=== PATIENT | female | born 1965 | race Caucasian/White ===

== ENCOUNTER → 2016-11-09 | Outpatient (CLI) | payer OTHER ==
[~2016-11-09] MED LIST: METFORMIN PO; PARLODEL2.5 MG PO; SYNTHROID PO; VICODIN PO; WALGREENS PHARMACY
--- NOTE | ~2016-11-09 | XA35 ---
[facility] A Service of [facility] RADIOLOGY TEXT RESULTS PATIENT: NOLA BRASHER LOCATION: [facility] : [birth year] UNIT #: [id number] AGE: [address]: Zachary Rodriguez MD SEX: F ORDER DR: [id number] [facility] [address] [place], [place] [address] [id number] O MR#: [id number] Acc #: [id number] NAME: NOLA BRASHER : 1965 SEX: F STUDY DATE/TIME: 11/09/2016 11:34 UNIT: [facility] ROOM: STUDY DESCRIPTION: XA Arthrogram Shoulder Rt Attending Physician: Zachary Rodriguez M.D. Referring Physician: Zachary Rodriguez M.D. Ordering Physician: Zachary Rodriguez M.D. Primary Care Physician: Shravan Suárez M.D. MEDICAL IMAGING REPORT This report is preliminary unless electronic signature is present EXAM Fluoroscopically-guided right shoulder arthrogram HISTORY 51-year-old lady who injured her right shoulder in July. She fell after tripping over her purse strap and braced herself again a wall with her right arm. PROCEDURE The risks, benefits, and alternatives to the procedure were explained to the patient and a signed, informed consent was obtained. She was prepped and draped in the usual sterile fashion and timeout was performed as per protocol. Skin and subcutaneous tissues were anesthetized with buffered lidocaine. A 22-gauge spinal needle was advanced into the joint space. Contrast was injected which confirmed location within the joint space. Multiple fluoroscopic imaging was obtained, needle was removed, and manual pressure was applied until hemostasis was obtained. Total fluoroscopy time was 0.9 minutes. Total of 4 fluoroscopic images were obtained. IMPRESSION Technically successful fluoroscopically-guided right shoulder arthrogram. Please see separately dictated report for a full description of findings within the right shoulder. Fluoroscopy was used during this procedure and permanent images were saved. Dictated by... Aimee Alan M.D. THIS IS AN ELECTRONICALLY VERIFIED REPORT Aimee Alan M.D. at 11/10/2016 10:03 AM AFF/aa [facility] A Service of [facility] RADIOLOGY TEXT RESULTS PATIENT: NOLA BRASHER LOCATION: [facility] #: [id number] : [birth year] UNIT #: [id number] AGE: [address]: Zachary Rodriguez MD SEX: F ORDER DR: TD: 11/10/2016 08:54 JOB #: [id number] MEDICAL IMAGING REPORT Page 1 of 1 COPY
--- NOTE | ~2016-11-09 | CT130 ---
[facility] A Service of [facility] RADIOLOGY TEXT RESULTS PATIENT: NOLA BRASHER LOCATION: [facility] : [birth year] UNIT #: [id number] AGE: [address]: Zachary Rodriguez MD SEX: F ORDER DR: [id number] [facility] [address] [place], [place] [address] [id number] O MR#: [id number] Acc #: [id number] NAME: NOLA BRAHSER. : 1965 SEX: F STUDY DATE/TIME: 11/09/2016 12:16 UNIT: [facility] ROOM: STUDY DESCRIPTION: CT Upper Ext Rt Wo Cont Attending Physician: Zachary Rodriguez M.D. Referring Physician: Zachary Rodriguez M.D. Ordering Physician: Zachary Rodriguez M.D. Primary Care Physician: Shravan Suárez M.D. MEDICAL IMAGING REPORT This report is preliminary unless electronic signature is present EXAM CT right shoulder. HISTORY 51-year-old female; right greater tuberosity fracture. Possible cuff avulsion. COMPARISON Conventional arthrogram 11/09/2016. Comparison also made to right shoulder films 08/07/2016. TECHNIQUE Thin section axial images were performed through the right shoulder with multiplanar reconstructed images reviewed at a workstation. Intraarticular contrast injected. FINDINGS Examination demonstrates deformity of the greater tuberosity consistent with a mildly impacted greater tuberosity fracture. There is estimated about 4 mm of impaction. No significant disruption of the humeral head articular surface is identified. No evidence of a fracture of the surgical neck of the humerus. AC joint unremarkable. Contrast distends the glenohumeral joint with abnormal communication to the subacromial-subdeltoid bursa through a full-thickness tear involving the anterior distal insertion of the supraspinatus tendon. This measures about 1.1 cm medial to lateral dimension by 1.5 cm AP dimension. There is a focus of calcification within the infraspinatus tendon near the myotendinous junction. This is compatible with calcific tendinitis. This was seen on the patient's study from 08/07/2016. The infraspinatus and teres minor tendons appear intact. The subscapularis tendon appears intact. The long tendon of the biceps and visualized labrum unremarkable. Extraarticular soft tissues unremarkable. [facility]. [facility] A Service of [facility] RADIOLOGY TEXT RESULTS PATIENT: NOLA BRASHER LOCATION: [facility] : 63 UNIT #: [id number] AGE: [address]: Zachary Rodriguez MD SEX: F ORDER DR: The impaction fracture measures approximately 2 cm in greatest AP dimension. IMPRESSION 1. 1.1 x 1.5 cm full-thickness tear involving the anterior distal insertion of the supraspinatus tendon. 2. Minimally impacted greater tuberosity fracture. There is no more than 4 mm impaction of the fracture, and the fracture appears relatively healed, but there is some residual deformity related to the impaction injury. Dictated by... Esther Herr M.D. THIS IS AN ELECTRONICALLY VERIFIED REPORT Esther Herr M.D. at 11/14/2016 6:05 AM John TD: 11/13/2016 12:12 JOB #: [id number] MEDICAL IMAGING REPORT Page 1 of 1 COPY
== END | disposition home or self-care (01) ==
LOC: CIVR 11:00
DX: S42.254A Nondisplaced fracture of greater tuberosity of right humerus, initial encounter for closed fracture (principal); S46.011A Strain of muscle(s) and tendon(s) of the rotator cuff of right shoulder, initial encounter
CPT/HCPCS: 73040; 73200; 77002; Q9967

== ENCOUNTER 2016-12-15 19:05 | Emergency (ER) | payer OTHER | END 2016-12-15 20:09 | disposition left against medical advice (07) | LOC: CED 19:05 | DX: Z53.21 Procedure and treatment not carried out due to patient leaving prior to being seen by health care provider (principal) ==